=== PATIENT | male | born 1970 | race Caucasian/White ===

== ENCOUNTER 2017-10-17 17:29 | Emergency (ER) | payer OTHER ==
[~2017-10-17] VITALS: Ht 182.9 cm; Wt 106.6 kg
--- NOTE | 2017-10-17 17:34 | NUR ---
CALLED IN [facility]- NO ANSWER
--- NOTE | 2017-10-17 17:41 | NUR ---
CALLED IN [facility]- NO ANSWER
[2017-10-17 17:50] VITALS: BP 172/101
--- NOTE | 2017-10-17 18:21 | NUR ---
URINE SENT TO LAB
[2017-10-17 18:32] LABS: APPEARANCE,URINE Clear (CLEAR); BILIRUBIN,URINE Negative (NEGATIVE); BLOOD, URINE Negative Ery/uL (NEGATIVE); COLOR,URINE Yellow (YELLOW); KETONES,URINE Negative (NEGATIVE); LEUKOCYTE ESTERASE ,URINE Negative (NEGATIVE); NITRITE, URINE Negative (NEGATIVE); PH,URINE 5.5 (5.0-8.0); PROTEIN,URINE Negative (NEGATIVE); UGLUCOSE 500 MG/DL mg/dL (NEGATIVE); UROBILINOGEN,URINE 0.2 EU/dL (0.2)
[2017-10-17 19:00] LABS: BACTERIA,URINE Rare /HPF (None Seen); MUCUS,URINE Rare /LPF (None Seen); RBC,URINE 0-2 /HPF (0-2); SQUAMOUS EPITHELIAL CELL,UR Rare /HPF (None Seen); WBC,URINE 0-2 /HPF (0-3)
== END 2017-10-17 19:34 | disposition home or self-care (01) ==
LOC: ER 17:33
DX: E11.65 Type 2 diabetes mellitus with hyperglycemia (principal); R81 Glycosuria; F17.200 Nicotine dependence, unspecified, uncomplicated; Z90.89 Acquired absence of other organs
CPT/HCPCS: 81000-TC; 82962-TC; 87491; 87591; A4606; Z7610